=== PATIENT | male | born 1990 | race Caucasian/White ===

== ENCOUNTER 2020-09-06 15:54 | Outpatient (REF) | payer OTHER, SELFPAY | END 2020-09-06 15:55 | disposition home or self-care (01) | LOC: HO.LAB 15:54 | PROVIDERS: Visit Provider Internal Medicine | DX: Z20.828 Contact with and (suspected) exposure to other viral communicable diseases (principal) | CPT/HCPCS: 87635 ==

== ENCOUNTER 2023-06-08 13:11 | Outpatient (AMB) | payer OTHER, SELFPAY ==
--- NOTE | 2023-06-08 13:45 | MHC.OFFWIV ---
Intake Vital Signs 06/08/23 13:51 BP 120/80 Blood Pressure Location Lt brachial Position Sitting Pulse 97 Pulse Source Pulse Oximeter Pulse Oximetry (%) 94 Oxygen Delivery Method Room Air Intake Visit Reasons: [employer], Right ankle inflammation, rash from wasp bite Intake Note: Patient here because he was bit by wasp on thursday on ankle. Patient Tobacco Use Status: Never used Tobacco Allergies amoxicillin [Augmentin] Allergy (Unknown, Verified 06/08/23 14:07) rash clavulanic acid [Augmentin] Allergy (Unknown, Verified 06/08/23 14:07) rash Medication List - Last Reconciled 06/08/23 by Pk Santos MD montelukast (Singulair) 10 mg PO BEDTIME 30 days Do you need a note to return to daycare/school/sports/work: Yes HPI [employer], Right ankle inflammation, rash from wasp bite HPI Details 33-year-old male presents to the office for a sick visit. Patient was stung by a bunch of wasps a day ago. His right ankle is swollen. PFSH Social History Patient Tobacco Use Status: Never used Tobacco Physical Exam Vital Signs: Last Vital Signs Pulse 97 06/08/23 13:51 BP 120/80 06/08/23 13:51 Pulse Ox 94 06/08/23 13:51 Oxygen Delivery Method Room Air 06/08/23 13:51 Extrem Other: Right leg/ankle: Erythematous area over the wyman with tenderness. Assessment & Plan Assessment & Plan (1) Bee sting allergy: Code(s): Z91.030 - Bee allergy status Plan: Prednisone called in. Keep the foot elevated. If symptoms not better to follow-up here. Coding Level of Care Code Est Pt Level 3 (19018) Diagnoses Bee sting allergy Z91.030
[2023-06-08 13:51] VITALS: BP 120/80; PULSE 97; O2SAT 94
== END 2023-06-08 14:46 | disposition home or self-care (01) ==
PROVIDERS: Visit Provider Internal Medicine
DX: S90.561A Insect bite (nonvenomous), right ankle, initial encounter (principal); Z91.030 Bee allergy status
CPT/HCPCS: 99203

== ENCOUNTER 2023-06-13 21:41 | Observation (INO) | payer OTHER, SELFPAY ==
--- NOTE | ~2023-06-13 | US_ITS ---
EXAMINATION: US VENOUS ULTRASOUND WITH DOPPLER LOWER EXTREMITY, RIGHT CLINICAL INFORMATION: Right leg edema COMPARISON: None available. TECHNIQUE: Ultrasound of the deep veins is performed portably at the patient's bedside from the hip to the calf with compression sonography and color and pulse Doppler assessment. Spectral analysis with color-flow imaging is performed. FINDINGS: There is normal venous compression and respiratory variation and augmented flow. The visualized common femoral vein, superficial femoral vein, profunda femoral vein, popliteal vein, and the trifurcation region shows no evidence of deep venous thrombosis. There is no significant popliteal fossa cyst. Prominent 1.5 x 1.8 cm node present in the right groin If the patient's symptoms persist, followup ultrasound in 5 days 7 days might be of value to exclude proximal propagation from a non-visualized calf vein. US/US venous duplex LE RT IMPRESSION: No DVT demonstrated in the right lower extremity.
--- NOTE | ~2023-06-13 | XR_ITS ---
EXAMINATION: XR ANKLE, RIGHT CLINICAL INFORMATION: Cellulitis COMPARISON: None available. TECHNIQUE: AP, lateral, and mortise views of the right ankle. FINDINGS: There is soft tissue swelling laterally. No fracture. Alignment is anatomic. No erosions. Joint spaces are maintained. XR/XR ankle RT 2V IMPRESSION: Soft tissue swelling laterally. No evidence of osteomyelitis.
[2023-06-13 21:43] VITALS: BP 150/104; PULSE 117; RESP 18; TEMP 36.9; O2SAT 100; BMI 27.1
[2023-06-13 22:04] LABS: Basophils Absolute Auto 0.1 X10*3/uL (0.0-0.2); Basophils Percent Auto 0.5 % (0-2); Eosinophils Percent Auto 5.7 % (0-4); Hematocrit 45.6 % (42.0-52.0); Hemoglobin 15.5 g/dl (14.0-18.0); Imm Gran Abs Auto 0.16 X10*3/uL (0.00-0.03); Imm Gran Pct Auto 0.9 % (0.0-0.4); Lymphocytes Absolute Auto 3.1 X10*3/uL (1.2-4.9); MANUAL DIFF FLAG SCAN; Mean Corpuscular Hemoglobin 28.9 pg (27.0-33.0); Mean Corpuscular Volume 84.9 fL (80.0-98.0); Mean Platelet Volume 8.7 fL (9.4-12.4); Monocytes Absolute Auto 1.6 X10*3/uL (0.1-1.2); Monocytes Percent Auto 9.5 % (2-11); Neutrophils Absolute Auto 11.2 x10*3/uL (2.0-8.3); Neutrophils Percent Auto 65.4 % (45-73); Platelet Count 292 X10*3/uL (160-400); Red Blood Count 5.37 X10*6/uL (4.60-5.80); SCAN SMEAR FLAG 1; White Blood Count 17.1 X10*3/uL (4.8-10.8)
[2023-06-13 22:25] LABS: Alanine Aminotransferase 25 U/L (0-40); Alkaline Phosphatase 64 U/L (39-117); Anion Gap 19 (12-20); Aspartate Amino Transferase 20 U/L (5-37); Bilirubin Total 0.5 mg/dL (0.0-1.0); Blood Urea Nitrogen 21 mg/dL (9-16); Calcium 11.1 mg/dL (8.4-10.2); Carbon Dioxide 25 mmol/L (22-29); Chloride 101 mmol/L (96-108); Creatinine Clr Calc Pharmacy 125.9; Estimated Glomerular Filt Rate > 60; Glucose Random 92 mg/dL (60-115); Potassium 3.8 mmol/L (3.3-5.1); Sodium 141 mmol/L (135-145); Total Protein 8.5 g/dL (6.5-8.0)
[2023-06-13 22:46] LABS: SLIDE REVIEW VERIFIED
--- NOTE | 2023-06-13 23:21 | ED_ITS ---
HPI - General Adult General Chief complaint: Extremity Injury, Lower Stated complaint: R Ankle pain/Insect bite Time Seen by Provider: 06/13/23 22:56 Source: patient Mode of arrival: ambulatory Limitations: no limitations History of Present Illness HPI narrative: 33-year-old male came in for evaluation of right ankle swelling, redness, pain after was the stung by yellow jacket, patient was seen at urgent care last week was prescribed 3 days course of prednisone with no improvement. Related Data Previous Rx's Medication Instructions Recorded montelukast 10 mg tablet 10 mg PO BEDTIME 30 days #30 tabs 08/31/20 (Singulair) prednisone 20 mg tablet 60 mg PO DAILY #9 tabs 06/08/23 Allergies Allergy/AdvReac Type Severity Reaction Status Date / Time amoxicillin [Augmentin] Allergy Unknown rash Verified 06/08/23 14:07 clavulanic acid [Augmentin] Allergy Unknown rash Verified 06/08/23 14:07 Review of Systems Review of Systems: All other systems are reviewed and are negative Constitutional: Reports as per HPI and Reports no additional constitutional complaints Eyes: Reports as per HPI and Reports no additional eye complaints Reports system reviewed and no additional complaints, except as documented Cardiovascular: Reports as per HPI and Reports no additional cardiovascular complaints Respiratory: Reports as per HPI and Reports no additional respiratory complaints Gastrointestinal: Reports as per HPI and Reports no additional gastrointestinal complaints Genitourinary: Reports no additional female genitourinary complaints Musculoskeletal: Reports no additional musculoskeletal complaints Skin/Breast: Reports system reviewed and no additional complaints, except as docu Psychiatric: Reports no additional psychiatric complaints Endocrine: Reports no additional endocrine complaints Hematologic/Lymphatic: Reports no additional hematologic/lymphatic complaints Allergic/Immunologic: Reports no additional allergic/immunologic complaints Reports system reviewed and no additional complaints, except as documented and Reports Abnormal speech present [facility] Social History Social History Patient Tobacco Use Status: Never used Tobacco Advance Directives: No Advance Directives Information Provided: No Physical Exam ED Vital Signs: Vital Signs - 24 hr 06/13/23 21:43 06/14/23 00:38 Temperature 98.5 F 98.1 F Pulse Rate 117 H 97 Respiratory Rate 18 16 Blood Pressure 150/104 H 140/76 H Pulse Oximetry 100 96 Oxygen Delivery Method Room Air Room Air BMI result Body Mass Index 27.1 Vital signs have been reviewed as appeared to be correct. Blood pressure normal. Heart rate elevated. Respiration rate normal. Temperature normal. Oxygen saturation normal. Appearance: Alert. Oriented X3. No acute distress. Head: Normal external exam. Normocephalic. Atraumatic. No Rogers signs noted. No raccoon eyes noted Eyes: PERRLA. EOMI. Conjunctiva and sclera normal. Eyelids normal. ENT: TM's Normal. Pharynx normal. Uvula midline. Moist mucous membranes. No trismus noted. No drooling noted. No muffled voice noted. Neck: Normal inspection. Neck supple. FROM. No adenopathy. Thyroid Normal. No meningeal signs. No neck mass noted. CVS: Normal heart rate and rhythm. Heart sound normal. No murmurs noted. Pulses normal throughout. Respiratory: No respiratory distress. Painless inspiration. Breath sounds normal. No wheezes/rales/rhonchi noted. Chest nontender. No accessory muscle usage noted or decreased air movement noted. Abdomen: Soft and nontender. Bowel sounds normal in all 4 quadrants. No distention noted. No organomegaly noted. No visible injury noted. Back: No CVA tenderness. Full range of motion noted. Skin: Skin warm and dry. Normal skin color. Normal skin turgor. No rashes/lesions/lacerations noted. Extremities: Right ankle: Redness, hotness, swelling of the right ankle, tenderness to touch, no fluctuation no drainage, neurovascularly intact. Neuro: Oriented X 3. Cranial nerve exam: II-XII are grossly intact No motor deficit. No sensory deficit. Reflexes normal. Course Course Course Narrative: Right ankle tenderness and redness after was stung by yellow jacket or wasp, swelling did not respond to oral prednisone, patient is allergic to penicillin. Patient is receiving vancomycin/ceftriaxone in the ED. Will admit him Medications Administered Discontinued Medications Generic Name Dose Route Start Last Admin Trade Name Freq PRN Reason Stop Dose Admin Sodium Chloride 1,000 mls @ 999 mls/hr 06/13/23 23:07 06/13/23 23:52 Ns IV 06/14/23 00:07 999 mls/hr .Q1H1M ONE Administration Vancomycin HCl 1,500 mg/ 500 mls @ 333.333 mls/hr 06/13/23 23:07 06/13/23 23:54 Sodium Chloride IV 06/14/23 00:36 Not Given ONCE ONE Ceftriaxone Sodium 1 gm/ 50 mls @ 100 mls/hr 06/13/23 23:20 06/13/23 23:52 Sodium Chloride IV 06/13/23 23:49 100 mls/hr ONCE ONE Administration Medical Decision Making Differential Diagnosis Differential Diagnoses: The differential diagnosis associated with the presentation includes (Right ankle fracture, DVT, right ankle osteomyelitis, cellulitis.) Admission/Observation Consideration of admission/observation: Escalation of care including a dmission/observation considered Consult Healthcare Provider Management of the patient was discussed with: Hospitalist (Dr. Martin.) Lab Data MDM Lab Attestation statement: I reviewed the patient's lab results. 06/13/23 21:58 06/13/23 21:58 Labs: Lab Results 06/13/23 06/13/23 06/13/23 Range/Units 21:57 21:58 21:58 WBC 17.1 H (4.8-10.8) X10*3/uL RBC 5.37 (4.60-5.80) X10*6/uL Hgb 15.5 (14.0-18.0) g/dl Hct 45.6 (42.0-52.0) % MCV 84.9 (80.0-98.0) fL MCH 28.9 (27.0-33.0) pg MCHC 34.0 (31.0-36.0) g/dl RDW 13.0 (11.0-16.0) % Plt Count 292 (160-400) X10*3/uL MPV 8.7 L (9.4-12.4) fL Immature Gran % (Auto) 0.9 H (0.0-0.4) % Neut % (Auto) 65.4 (45-73) % Lymph % (Auto) 18.0 L (20-40) % [place] % (Auto) 9.5 (2-11) % Eos % (Auto) 5.7 H (0-4) % Baso % (Auto) 0.5 (0-2) % Lymph # (Auto) 3.1 (1.2-4.9) X10*3/uL [place] # (Auto) 1.6 H (0.1-1.2) X10*3/uL Eos # (Auto) 1.0 H (0.0-0.4) X10*3/uL Baso # (Auto) 0.1 (0.0-0.2) X10*3/uL Abs Immat Gran (auto) 0.16 H (0.00-0.03) X10*3/uL Absolute Neuts (auto) 11.2 H (2.0-8.3) x10*3/uL Absolute Nucleated RBC 0.000 (0.0-0.012) X10*3/uL Nucleated RBC % (auto) 0.0 (0.0-0.2) /100WBC Smear Tech's Comments VERIFIED Sodium 141 (135-145) mmol/L Potassium 3.8 (3.3-5.1) mmol/L Chloride 101 (96-108) mmol/L Carbon Dioxide 25 (22-29) mmol/L Anion Gap 19 (12-20) BUN 21 H (9-16) mg/dL Creatinine 0.96 (0.5-1.4) mg/dL Estim Creat Clear Calc 125.9 Estimated GFR > 60 Random Glucose 92 (60-115) mg/dL Lactic Acid 2.0 (0.5-2.0) mmol/L Calcium 11.1 H (8.4-10.2) mg/dL Total Bilirubin 0.5 (0.0-1.0) mg/dL AST 20 (5-37) U/L ALT 25 (0-40) U/L Alkaline Phosphatase 64 (39-117) U/L Total Protein 8.5 H (6.5-8.0) g/dL Albumin 5.0 (3.5-5.0) g/dL Independent Interpretation I performed an independent interpretation of an: Plain X-Ray (Right ankle: No acute fracture, soft tissue swelling , no osteomyelitis.) Radiology Impression Discussion of test interpretation with radiology: I have reviewed the radiologist's reading. Discharge Plan Discharge Clinical Impression: Cellulitis of right ankle Patient Disposition: Admitted As Inpatient
[2023-06-13] MEDS: cefTRIAXone sodium 1 GM in 0.9 % Sodium Chloride 50 ML IV (23:52)
[2023-06-13] MEDS: 0.9 % Sodium Chloride 1,000 ML 999 ML IV (23:52)
[2023-06-14 00:38] VITALS: BP 140/76; PULSE 97; RESP 16; TEMP 36.7; O2SAT 96
[2023-06-14] MEDS: vancomycin/NS 2,000 MG/500 ML PLAST..BAG 250 MG IV (00:43)
--- NOTE | 2023-06-14 01:17 | P.HPHOSP_ITS ---
History of Present Illness Date of Service: 06/14/23 Chief Complaint: Foot swelling 33-year-old male with no significant past medical history presents to the hospital after being stung by a wasp about a week ago. Patient has now developed significant swelling, redness, as well as tenderness in his right foot. Patient reports that this stent was in the right lateral ankle, started gradually swelling, very tender, had difficulty walking on his foot, went to Urgent Care, was prescribed prednisone, for several days which he completed, but he remains with swelling and severe tenderness. Patient denies any fever but has chills, no nausea or vomiting, no abdominal pain or diarrhea, no urinary symptoms and no lower extremity edema otherwise. On arrival to the ED patient noted to be tachycardic, labs are significant for leukocytosis of 17 otherwise unremarkable. Ankle x-ray shows tissue swelling but no other abnormality. Patient will be admitted for further management PMFSH Medical History No pertinent past medical history Surgical History No pertinent past surgical history Social History Patient Tobacco Use Status: Never used Tobacco Advance Directives: No Advance Directives Information Provided: No Meds Allergies Allergy/AdvReac Type Severity Reaction Status Date / Time amoxicillin [Augmentin] Allergy Unknown rash Verified 06/08/23 14:07 clavulanic acid [Augmentin] Allergy Unknown rash Verified 06/08/23 14:07 Active Medications: Current Medications Vancomycin HCl (Vancomycin/Ns) 2,000 mg in 500 mls @ 250 mls/hr IV ONCE ONE Stop: 06/14/23 01:44 Last Admin: 06/14/23 00:43 Dose: 250 mls/hr Pharmacy Consult (Consult Rx Vancomycin Dosing) 1 each MISCELLANE DAILY PRN PRN Reason: Consult order Physical Exam Vital Signs and Narrative: Vital Signs: Last Vital Signs Temp 98.1 F 06/14/23 00:38 Pulse 97 06/14/23 00:38 Resp 16 06/14/23 00:38 BP 140/76 H 06/14/23 00:38 Pulse Ox 96 06/14/23 00:38 O2 Del Method Room Air 06/14/23 00:38 BMI result Body Mass Index 27.1 Const: General: cooperative and no acute distress Orientation/consciousness: patient oriented x3 Eyes: General: appearance normal, both eyes and all related structures Resp: Effort & Inspection: normal respiratory effort Auscultation: clear to auscultation bilaterally Cardio: Rate: regular rate Rhythm: regular rhythm GI: Palpation (GI): Soft to palpation Auscultation: normal bowel sounds Skin: Other: Left lower extremity around the ankle mild erythema, warmth, tenderness as well as significant edema Neuro: General: patient oriented x3 Cognition (Neuro): normal cognition Extrem: Other: See skin exam Results Labs 06/13/23 21:58 06/13/23 21:58 Labs: Laboratory Results - last 24 hr 06/13/23 06/13/23 06/13/23 21:57 21:58 21:58 MCV 84.9 MCH 28.9 MCHC 34.0 RDW 13.0 Plt Count 292 MPV 8.7 L Immature Gran % (Auto) 0.9 H Neut % (Auto) 65.4 Lymph % (Auto) 18.0 L [place] % (Auto) 9.5 Eos % (Auto) 5.7 H Baso % (Auto) 0.5 Lymph # (Auto) 3.1 [place] # (Auto) 1.6 H Eos # (Auto) 1.0 H Baso # (Auto) 0.1 Abs Immat Gran (auto) 0.16 H Absolute Neuts (auto) 11.2 H Absolute Nucleated RBC 0.000 Nucleated RBC % (auto) 0.0 Smear Tech's Comments VERIFIED Anion Gap 19 Estim Creat Clear Calc 125.9 Estimated GFR > 60 Random Glucose 92 Lactic Acid 2.0 Calcium 11.1 H Total Bilirubin 0.5 AST 20 ALT 25 Alkaline Phosphatase 64 Total Protein 8.5 H Albumin 5.0 Imaging Radiologist's Impressions: Impressions Ankle X-Ray 06/13/23 23:22 IMPRESSION: Soft tissue swelling laterally. No evidence of osteomyelitis. Venous Duplex 06/13/23 23:54 IMPRESSION: No DVT demonstrated in the right lower extremity. Assessment and Plan (1) Cellulitis of right ankle: Status: Acute Plan 33-year-old male past medical history of asthma not in exacerbation presents the hospital with complaints of right ankle swelling for 1 week after a bee sting # cellulitis of right ankle - acute, has leukocytosis, tachycardic meeting SIRS criteria - otherwise hemodynamically stable - will treat with IV antibiotics - follow cultures # asthma - not in exacerbation - continue home inhalers DVT prophylaxis: Early ambulation Time Spent With Patient Time: Total time managing care of this patient today ____ minutes. Quality Stroke Does the patient have a stroke diagnosis?: No VTE Prior VTE?: No VTE Risk Level:: Medical - low VTE Device Contraindication: Treatment Not Indicated VTE Drug Contraindication: Treatment Not Indicated
[2023-06-14 02:08] VITALS: BP 119/80; PULSE 102; RESP 18; TEMP 36.7; O2SAT 95
[2023-06-14] MEDS: ceFAZolin Sodium/Dextrose,Iso 2 GM/50 ML PIGGYBACK IV ×3 (03:03→18:16)
[2023-06-14 06:53] VITALS: BP 126/80; PULSE 87; RESP 18; TEMP 36.6; O2SAT 98
[2023-06-14 06:56] LABS: MANUAL DIFF FLAG NO
[2023-06-14 07:09] LABS: Basophils Absolute Auto 0.1 X10*3/uL (0.0-0.2); Basophils Percent Auto 0.7 % (0-2); Eosinophils Percent Auto 8.3 % (0-4); Hemoglobin 13.5 g/dl (14.0-18.0); Imm Gran Abs Auto 0.16 X10*3/uL (0.00-0.03); Imm Gran Pct Auto 1.4 % (0.0-0.4); Lymphocytes Absolute Auto 3.6 X10*3/uL (1.2-4.9); Lymphocytes Percent Auto 30.9 % (20-40); Mean Corpuscular HGB Conc 33.8 g/dl (31.0-36.0); Mean Corpuscular Hemoglobin 29.3 pg (27.0-33.0); Mean Corpuscular Volume 86.8 fL (80.0-98.0); Monocytes Absolute Auto 1.2 X10*3/uL (0.1-1.2); Monocytes Percent Auto 10.3 % (2-11); Neutrophils Absolute Auto 5.6 x10*3/uL (2.0-8.3); Neutrophils Percent Auto 48.4 % (45-73); Platelet Count 256 X10*3/uL (160-400); Red Blood Count 4.61 X10*6/uL (4.60-5.80); Red Cell Distribution Width 13.3 % (11.0-16.0); White Blood Count 11.5 X10*3/uL (4.8-10.8)
[2023-06-14 07:23] LABS: Anion Gap 12 (12-20); Blood Urea Nitrogen 16 mg/dL (9-16); Carbon Dioxide 25 mmol/L (22-29); Chloride 106 mmol/L (96-108); Creatinine Clr Calc Pharmacy 163.4; Estimated Glomerular Filt Rate > 60; Glucose Random 98 mg/dL (60-115); Potassium 3.8 mmol/L (3.3-5.1); Sodium 139 mmol/L (135-145)
[2023-06-14] MEDS: 0.9 % Sodium Chloride Flush 3 ML SYRINGE IVFLUSH ×3 (07:29→19:32)
--- NOTE | 2023-06-14 07:35 | PC.NURSE ---
pt a&ox. respirations even and unlabored. pt reports no pain. right lower leg reddened with slight swelling, circulation in tact.
--- NOTE | 2023-06-14 08:14 | PC.NURSE ---
report given to [facility] nurse.
--- NOTE | 2023-06-14 08:21 | PHA.PROG ---
Admission Date/Time: June 14, 2023 01:10 Indication: skin Weight in k.3 kg Adjusted body weight in Kg: [place] body weight in Kg: Obesity Dosing Indication % IBW: Serum Creatinine - Last 168 Hours 06/13/23 06/14/23 21:58 06:31 Creatinine 0.96 0.74 Estimated CrCl and GFR - Last 168 Hours 06/13/23 06/14/23 21:58 06:31 Estim Creat Clear Calc 125.9 163.4 Estimated GFR > 60 > 60 Vancomycin Loading Dose:2000 Current Vancomycin Dosing Regimen: 1500 q12h Vancomycin Monitoring using AUC goal of 400 - 600 range with trough as surrogate marker: auc 553, trough 16.6 Date and Time for next Vancomycin Level to be drawn: 06/15 @1100 Pharmacist Comments on Vancomycin Plan: Vancomycin dosing will take advantage of [employer] as a clinical decision support tool that uses Bayesian modeling to calculate individual patient's pharmacokinetic parameters and forecast the patient's drug concentration time course with the target goal AUC 24 range of 400 - 600 mg/L/hr.
[2023-06-14 09:05] VITALS: BMI 27.0
--- NOTE | 2023-06-14 09:08 | PM.EVENT ---
Event Note Date of Service: 06/14/23 Event Note: This patient is seen and examined earlier this morning with hospitalist team. patient has foot swelling/erythema similar No fever, tachycardia and leukocytosis improved Physical exam: Similar-foot swelling/erythema similar . and assessment and plan coordinated in APCs note, Agree with the plan in addition: continue iv antibiotics ,Id eval. Time Spent With Patient Time: Total time managing care of this patient today ____ minutes.
--- NOTE | 2023-06-14 09:13 | PHA.MEDREC ---
Pharmacy Consult ? Medication Reconciliation Pharmacy has completed the medication reconciliation. SPOKE WITH PT
[2023-06-14 09:34] LABS: C Reactive Protein 1.31 mg/dL (< or = 0.50)
[2023-06-14 09:57] LABS: Erythrocyte Sedimentation Rate 12 MM/HR (0-15)
[2023-06-14] MEDS: Acetaminophen 325 MG TABLET 650 MG PO (11:01)
[2023-06-14] MEDS: vancomycin HCL 1,500 MG in 0.9 % Sodium Chloride 500 ML 333.33 MG IV (12:36)
[2023-06-14 15:36] VITALS: BP 132/82; PULSE 75; RESP 16; TEMP 36.6; O2SAT 98
[2023-06-14] MEDS: guaiFENesin DM 100/10/5 ML 5 ML SYRUP PO (19:37)
[2023-06-14 19:55] VITALS: BP 140/69; PULSE 65; RESP 20; TEMP 35.8; O2SAT 98
[2023-06-15] MEDS: vancomycin HCL 1,500 MG in 0.9 % Sodium Chloride 500 ML 333.33 MG IV (01:00)
[2023-06-15] MEDS: ceFAZolin Sodium/Dextrose,Iso 2 GM/50 ML PIGGYBACK IV ×2 (03:01→11:18)
[2023-06-15 04:00] VITALS: BP 145/76; PULSE 72; RESP 18; TEMP 36.7; O2SAT 95
[2023-06-15 07:31] VITALS: BP 127/77; PULSE 77; RESP 20; TEMP 36.5; O2SAT 97
[2023-06-15 07:32] LABS: Creatinine Clr Calc Pharmacy 172.7; Estimated Glomerular Filt Rate > 60
[2023-06-15] MEDS: 0.9 % Sodium Chloride Flush 3 ML SYRINGE IVFLUSH (07:36)
--- NOTE | 2023-06-15 10:57 | HO.PM.IMPN ---
Subjective Subjective Date of Service: 06/15/23 Interval History: cellulitis Review of Systems foot pain/swlelin Physical Exam Vital Signs: Vital Signs: Last Vital Signs Temp 97.7 F 06/15/23 07:31 Pulse 77 06/15/23 07:31 Resp 20 06/15/23 07:31 BP 127/77 06/15/23 07:31 Pulse Ox 97 06/15/23 07:31 O2 Del Method Room Air 06/15/23 07:31 BMI result Body Mass Index 27.0 Objective Data Active Medications Acetaminophen (Acetaminophen 325 Mg Tablet) 650 mg PO Q6H PRN PRN Reason: Pain, Mild (Pain Scale 1-3) Last Admin: 06/14/23 11:01 Dose: 650 mg Documented By: ENEDELIA Guaifenesin/Dextromethorphan (Guaifenesin Dm 100/10/5 Ml 5 Ml Syrup) 5 ml PO Q4H PRN PRN Reason: cough Last Admin: 06/14/23 19:37 Dose: 5 ml Documented By: DAVID Cefazolin Sodium/Dextrose (Ancef) 2 gm in 50 mls @ 100 mls/hr IV Q8H [facility] Last Infusion: 06/15/23 03:36 Dose: 0 mls/hr Documented By: DAVID Vancomycin HCl 1,500 mg/ (Sodium Chloride) 500 mls @ 333.333 mls/hr IV Q12H [facility] Last Infusion: 06/15/23 02:38 Dose: 0 mls/hr Documented By: DAVID Ondansetron HCl (Ondansetron Hcl 4 Mg/2 Ml Vial) 4 mg IVPUSH Q8H PRN PRN Reason: Nausea and Vomiting Oxycodone HCl (Oxycodone Hcl Immed Release 5 Mg Tablet) 5 mg PO Q6H PRN PRN Reason: Pain, Severe (Pain Scale 7-10) Pharmacy Consult (Consult Rx Vancomycin Dosing) 1 each MISCELLANE DAILY PRN PRN Reason: Consult order Pharmacy Consult (Consult Rx Perform Med Rec) 1 each MISCELLANE ONCE PRN PRN Reason: Consult order Sodium Chloride (0.9 % Sodium Chloride Flush 3 Ml Syringe) 3 ml IVFLUSH QSHIFT [facility] Last Admin: 06/15/23 07:36 Dose: 3 ml Documented By: ARTURO Labs 06/14/23 06:31 06/15/23 05:57 Labs: Laboratory Results - last 24 hr 06/15/23 05:57 Estim Creat Clear Calc 172.7 Estimated GFR > 60 Microbiology Microbiology Results: Microbiology 06/14/23 03:50 Blood Culture - Preliminary Blood - Venous No growth after 24 hours. 06/13/23 21:58 Blood Culture - Preliminary Blood - Venous No growth after 24 hours. Blood Culture - Preliminary No growth after 24 hours. Assessment and Plan Time Spent With Patient Time: Total time managing care of this patient today ____ minutes. Quality Stroke Does the patient have a stroke diagnosis?: No VTE Prior VTE?: No VTE Risk Level:: Medical - low VTE Device Contraindication: Treatment Not Indicated VTE Drug Contraindication: Treatment Not Indicated
--- NOTE | 2023-06-15 11:50 | MHC.CM.PN ---
[facility] DELIVERED PT LIVES IN AN APT. [place]DEPEND[place] AT [place]EL[place]. EMPLOYED F/T. NO COVID VAX NO HCP (DECLINES) NO PCP, [facility] [place] [facility] PROVIDED. DP: HOME, NO SERVICES ANTICIPATED. MAY NEED A RIDE HOME VIA SHUTTLE OR LYFT. CM WILL CONTINUE TO FOLLOW FOR DC PLAN/NEEDS
[2023-06-15 12:18] LABS: Vancomycin Random 8.1 mcg/mL (15-20)
--- NOTE | 2023-06-15 12:30 | HE.PHANOTE ---
RE: VANCO Patients level came back this morning at 8.1. Next level tomorrow 06/16 @1100. Predicted AUC 450 ml/L/hr. Continue current dose.
--- NOTE | 2023-06-15 13:04 | P.DS_ITS ---
DS: Providers Provider Date of Service: 06/15/23 Date of admission: 06/14/23 01:10 Date of discharge: 06/15/23 Primary care physician: None Physician Consults: 06/14/23 09:14 Consult to Infectious Diseases Routine Consulting Provider: [facility] [place] Infectious Disease Reason for consultation: cellulitis Has provider been notified: No Attending physician on discharge: Reyes Chavez Discharging clinician: Reyes Chavez DS: Diagnosis Discharge Diagnosis (1) Cellulitis of right ankle: Status: Acute DS: Summary Hospital Course Hospital Course: 33-year-old male with no significant past medical history presents to the hospital after being stung by a wasp about a week ago.? Patient has now developed significant swelling, redness, as well as tenderness in his right foot.? Patient reports that this stent was in the right lateral ankle, started gradually swelling, very tender, had difficulty walking on his foot, went to Urgent Care, was prescribed prednisone, for several days which he completed, but he remains with swelling and severe tenderness.? Patient denies any fever but has chills, no nausea or vomiting, no abdominal pain or diarrhea, no urinary symptoms and no lower extremity edema otherwise.? On arrival to the ED patient noted to be tachycardic, labs are significant for leukocytosis of 17 otherwise unremarkable.? Ankle x-ray shows tissue swelling but no other abnormality. Patient will be admitted for further management. Hospital course: Patient was admitted for right ankle cellulitis-started on IV antibiotics, blood cultures sent, found to have leukocytosis, dvt studies right lower ext negative ,xary-shows There is soft tissue swelling laterallycrp is 1.3(mild elevated) ,esr 12(normal) : With IV antibiotics patient cellulitis seems to be improved significantly, leukocytosis improving, blood culture negative at 24 hours- patient seems to be improved significantly going home with p.o. antibiotics. plan: Patient will go home 7 days of doxycycline. Please complete the course. Above management discussed the patient in detail length he understand and in agreement with the above plan. Time Spent with Patient Time attestation: Total time managing care of this patient today ____ minutes. Discharge coordination time: Greater than 30 minutes Quality: Safe Use of Opioids Does Pt have an Active Cancer Diagnosis on the Problem List?: No Quality: Stroke Does the patient have a stroke diagnosis?: No Physical Exam Vital Signs: Vital Signs: Last Vital Signs Temp 97.7 F 06/15/23 07:31 Pulse 77 06/15/23 07:31 Resp 20 06/15/23 07:31 BP 127/77 06/15/23 07:31 Pulse Ox 97 06/15/23 07:31 O2 Del Method Room Air 06/15/23 07:31 BMI result Body Mass Index 27.0 Appearance: Alert.? Oriented X3.? not in distress.? cvs: rrr, [id number] . res: clear to auscultation ,no rhonchii or wheezing abd: no rebound or guarding ,nt, bs present. ext pulses present , no cyanosis. right ankle -swelling/erythema -improved significantly .ROM-intact. neuro: axo3 , nonfocal. DS: Data Data Completed and Pending Labs on day of discharge: Laboratory Results - last 24 hr 06/15/23 06/15/23 05:57 11:48 Creatinine 0.70 Estim Creat Clear Calc 172.7 Estimated GFR > 60 Random Vancomycin 8.1 L Preliminary micro results at discharge 06/14/23 03:50 Blood Culture - Preliminary Blood - Venous No growth after 24 hours. 06/13/23 21:58 Blood Culture - Preliminary Blood - Venous No growth after 24 hours. Blood Culture - Preliminary No growth after 24 hours. Imaging Chest x-ray: Radiologist's impression: ITS Impressions Ankle X-Ray 06/13/23 23:22 IMPRESSION: Soft tissue swelling laterally. No evidence of osteomyelitis. Venous Duplex 06/13/23 23:54 IMPRESSION: No DVT demonstrated in the right lower extremity. Discharge Plan Discharge Anticipated Discharge Date/Time: 06/15/23 12:55 Patient Disposition: Home, Self-Care Discharge Diagnosis: Cellulitis of leg. Referrals: Physician,None [Primary Care Provider] - 1 Week Discharge Medications: New doxycycline monohydrate 100 mg Capsule 100 mg PO Q12H Qty: 14 0RF Continued cetirizine [Zyrtec] 10 mg Tablet 10 mg PO DAILY lansoprazole 15 mg Capsule,Delayed Release(Dr/Ec) 15 mg PO DAILY Discharge Orders: Discharge Order (Routine); Ordered 06/15/23 Ordered By: Reyes Chavez Diet: Advance to usual diet Activity on Discharge: As tolerated Stand Alone Forms: Patient Portal Discharge page Care Plan Goals: Patient was admitted for right ankle cellulitis-started on IV antibiotics, blood cultures sent, found to have leukocytosis also: With IV antibiotics patient cellulitis seems to be improved significantly, leukocytosis improving, blood culture negative at 24 hours- patient seems to be improved significantly going home with p.o. antibiotics. Patient will go home 7 days of doxycycline. Please complete the course. Above management discussed the patient in detail length he understand and in agreement with the above plan. Health Concerns: As above. Plan of Treatment: As above. Assessment: As above.
[2023-06-15] MEDS: Doxycycline Monohydrate 100 MG CAPSULE PO (13:33)
--- NOTE | 2023-06-15 13:43 | MHC.CM.PN ---
dp: PT HAS BEEN MEDICALLY CLEARED FOR DC HOME, NO SERVICES. RN AWARE. DMITRIY GUERRA BOOKED FOR 2:10 PM
== END 2023-06-15 13:43 | disposition home or self-care (01) ==
LOC: HO.ED 06-14 00:41 → HO.EDOVER 06-14 02:09 → HO.S3 06-14 07:36
PROVIDERS: Admitting Provider Internal Medicine; Emergency Provider Emergency Medicine; Visit Provider Internal Medicine
DX: L03.115 Cellulitis of right lower limb (principal); M25.571 Pain in right ankle and joints of right foot; R60.0 Localized edema; Z91.030 Bee allergy status; J45.909 Unspecified asthma, uncomplicated; Z88.0 Allergy status to penicillin; Z79.899 Other long term (current) drug therapy
CPT/HCPCS: 36415; 73600; 80048; 80053; 80202; 82565; 83605; 85025; 85652; 86140; 87040; 93971; 96361; 96365; 96366; 96367; 96368; 99221; 99285; J0690; J0696; J3370; J3371

== ENCOUNTER → 2023-06-13 21:59 | Outpatient (BNV) | payer OTHER, SELFPAY | PROVIDERS: Emergency Provider Emergency Medicine; Visit Provider Internal Medicine | DX: L03.115 Cellulitis of right lower limb (principal) | CPT/HCPCS: 99236; 99239; 99499 ==

== ENCOUNTER 2024-07-11 11:28 | Emergency (ER) | payer OTHER, SELFPAY ==
--- NOTE | ~2024-07-11 | US_ITS ---
EXAMINATION: US VENOUS ULTRASOUND WITH DOPPLER LOWER EXTREMITY, RIGHT CLINICAL INFORMATION: Swelling, family history of blood clots. COMPARISON: None available. TECHNIQUE: Ultrasound of the deep veins is performed from the hip to the calf with compression sonography and color and pulse Doppler assessment. Spectral analysis with color-flow imaging is performed. FINDINGS: There is normal venous compression and respiratory variation and augmented flow. The visualized common femoral vein, superficial femoral vein, profunda femoral vein, popliteal vein, and the trifurcation region shows no evidence of deep venous thrombosis. There is no significant popliteal fossa cyst. Lump in the mid/distal calf area of concern corresponds to a patent varicosities off the great saphenous vein with reflux time of 1808 ms. US/US venous duplex LE RT IMPRESSION: No DVT demonstrated in the right lower extremity. Patent varicose vein off of the great saphenous vein in the calf corresponds to the area of concern.
[2024-07-11 11:43] VITALS: BP 142/103; PULSE 91; RESP 18; TEMP 36.9; O2SAT 98; BMI 24.7
--- NOTE | 2024-07-11 11:44 | ED_ITS ---
HPI - General Adult General Chief complaint: Extremity Problem Stated complaint: lump on r leg Time Seen by Provider: 07/11/24 12:20 Source: patient Mode of arrival: ambulatory Limitations: no limitations History of Present Illness ED Provider: Dwight Barrera PA-C HPI narrative: 34-year-old male with history of asthma presents to the ER for evaluation of a ?bump in his right calf that he noticed yesterday. Reports it is painless. He states he is worried about decreased blood flow, vascular issues as well as heart failure given his family history of such. He denies any redness or warmth to the area. No chest pain or shortness of breath. No history of blood clots. No recent travel. He has a chronic wound for the last year just distal to the area that has been evaluated by a senior it auditor and he has been using mupirocin on it. Reports associated cellulitis in the past from this but no recent erythema or concern for infection. complaint: Bump to the right medial calf Onset (ago): day(s) (1) Location: right and lower extremity Radiation: non-radiation Relieving factors: none Exacerbating factors: none Associated symptoms: denies other symptoms Treatments prior to arrival: none Related Data Home Medications ?Medication ?Instructions ?Recorded ?Confirmed cetirizine 10 mg tablet (Zyrtec) 10 mg PO DAILY 06/14/23 06/14/23 lansoprazole 15 mg capsule,delayed 15 mg PO DAILY 06/14/23 06/14/23 release Previous Rx's ?Medication ?Instructions ?Recorded doxycycline monohydrate 100 mg 100 mg PO Q12H #14 caps 06/15/23 capsule Allergies Allergy/AdvReac Type Severity Reaction Status Date / Time amoxicillin [Augmentin] Allergy Unknown rash Verified 07/11/24 11:47 clavulanic acid [Augmentin] Allergy Unknown rash Verified 07/11/24 11:47 prednisone Allergy Chest Pain Verified 07/11/24 11:47 Review of Systems 2 Review of Systems: Yes all other systems are reviewed and are negative PMFSH Past Medical History Medical History No pertinent past medical history Surgical History No pertinent past surgical history Social History Social History Household Members: Family Housing: Apartment Do you presently have visiting nurse or other home services: No Patient Tobacco Use Status: Never used Tobacco Advance Directives: No Advance Directives Information Provided: No Do you have a plan to hurt others: No Plan service: No Physical Exam ED Vital Signs: Vital Signs - 24 hr 07/11/24 11:43 07/11/24 14:56 Temperature 98.5 F 98.6 F Pulse Rate 91 59 Respiratory Rate 18 18 Blood Pressure 142/103 H 146/76 H Pulse Oximetry 98 98 Oxygen Delivery Method Room Air Room Air BMI result Body Mass Index 24.7 Appearance: Alert. Oriented X3. No acute distress. HEENT: normal inspection CVS: Normal heart rate and rhythm. Pulses normal. Respiratory: No respiratory distress. Skin: Skin warm and dry. Normal skin color. Normal skin turgor. No rashes. Extremities: RLE with a 1cm round scabbing lesion on the distal lower leg. medial calf in the middle of the lower leg with a minimally swollen area that is nontender. no skin changes. no calf tenderness. Neuro: Oriented X 3. grossly normal, nonfocal. Course Course Course Narrative: RME performed by Kavitha Lee PA-C. Patient is a 34 year old assigned male at presenting to the emergency department with a lump on his right lower leg. Patient states that they have a family history of CHF and poor circulation. Detailed physical exam and review of systems are deferred to the telegraph office manager. Labs and imaging ordered. Patient placed back in the waiting room pending room availability and results. Medical Decision Making Medical Decision Making MDM Narrative: 34-year-old male presents to the ER for evaluation of a right lower extremity area of swelling that was noted yesterday. No trauma. No overlying skin changes. No calf pain, chest pain or shortness of breath. He is worried about peripheral vascular disease and CHF. On examination there is a minimally swollen area at the distal gastroc muscle that is not tender. No induration. Homans sign is negative. Low clinical suspicion for DVT. His leg is warm and well perfused. He has a chronic wound of his right lower leg for which he sees Dermatology and has been using mupirocin. No evidence of cellulitis. Ultrasound was done that is showing a varicose vein in the area of concern. This is most likely with the patient feels as a lump. It is nonpainful. No need for vascular referral at this time. Results of labs and imaging were discussed with the patient. Recommended compression stockings and elevating his legs. Stable for discharge home. Differential Diagnosis Differential Diagnoses: The differential diagnosis associated with the presentation includes DVT, PVD, cellulitis, abscess, partial muscle tear, muscle strain Lab Data MDM Lab Attestation statement: I reviewed the patient's lab results. No leukocytosis, negative BNP 07/11/24 12:28 07/11/24 12:28 Labs: Lab Results 07/11/24 07/11/24 Range/Units 12:28 12:29 WBC 7.2 (4.8-10.8) X10*3/uL RBC 5.23 (4.60-5.80) X10*6/uL Hgb 15.2 (14.0-18.0) g/dl Hct 45.2 (42.0-52.0) % MCV 86.4 (80.0-98.0) fL MCH 29.1 (27.0-33.0) pg MCHC 33.6 (31.0-36.0) g/dl RDW 12.8 (11.0-16.0) % Plt Count 239 (160-400) X10*3/uL MPV 9.4 (9.4-12.4) fL Immature Gran % (Auto) 0.4 (0.0-0.4) % Neut % (Auto) 56.7 (45-73) % Lymph % (Auto) 32.0 (20-40) % Angelina % (Auto) 7.6 (2-11) % Eos % (Auto) 2.6 (0-4) % Baso % (Auto) 0.7 (0-2) % Lymph # (Auto) 2.3 (1.2-4.9) X10*3/uL Angelina # (Auto) 0.6 (0.1-1.2) X10*3/uL Eos # (Auto) 0.2 (0.0-0.4) X10*3/uL Baso # (Auto) 0.1 (0.0-0.2) X10*3/uL Abs Immat Gran (auto) 0.03 (0.00-0.03) X10*3/uL Absolute Neuts (auto) 4.1 (2.0-8.3) x10*3/uL Absolute Nucleated RBC 0.000 (0.0-0.012) X10*3/uL Nucleated RBC % (auto) 0.0 (0.0-0.2) /100WBC ESR 4 (0-15) MM/HR PT 11.5 (11.1-13.3) SEC INR 0.9 (0.9-1.1) APTT 31.0 (26.0-36.8) SEC Sodium 140 (135-145) mmol/L Potassium 3.9 (3.3-5.1) mmol/L Chloride 107 (96-108) mmol/L Carbon Dioxide 25 (22-29) mmol/L Anion Gap 12 (12-20) BUN 13 (9-16) mg/dL Creatinine 0.75 (0.5-1.4) mg/dL Estim Creat Clear Calc 159.8 Estimated GFR > 60 Random Glucose 99 (60-115) mg/dL Calcium 9.8 (8.4-10.2) mg/dL Magnesium 2.1 (1.6-2.6) mg/dL Total Bilirubin 0.5 (0.0-1.0) mg/dL AST 15 (5-37) U/L ALT 17 (0-40) U/L Alkaline Phosphatase 57 (39-117) U/L C-Reactive Protein < 0.10 (< or = 0.50) mg/dL B-Natriuretic Peptide < 10 (<100) pg/mL Total Protein 7.3 (6.5-8.0) g/dL Albumin 4.4 (3.5-5.0) g/dL Independent Interpretation I performed an independent interpretation of an: Ultrasound Interpretation: No evidence of acute DVT, agrees radiology read Radiology Impression Discussion of test interpretation with radiology: I have reviewed the radiologist's reading. Radiologist Impression: EXAMINATION: US VENOUS ULTRASOUND WITH DOPPLER LOWER EXTREMITY, RIGHT CLINICAL INFORMATION: Swelling, family history of blood clots. COMPARISON: None available. TECHNIQUE: Ultrasound of the deep veins is performed from the hip to the calf with compression sonography and color and pulse Doppler assessment. Spectral analysis with color-flow imaging is performed. FINDINGS: There is normal venous compression and respiratory variation and augmented flow. The visualized common femoral vein, superficial femoral vein, profunda femoral vein, popliteal vein, and the trifurcation region shows no evidence of deep venous thrombosis. There is no significant popliteal fossa cyst. Lump in the mid/distal calf area of concern corresponds to a patent varicosities off the great saphenous vein with reflux time of 1808 ms. US/US venous duplex LE RT IMPRESSION: No DVT demonstrated in the right lower extremity. Patent varicose vein off of the great saphenous vein in the calf corresponds to the area of concern. External Record Review External record reviewed: Outpatient record and Prior outpatient labs Critical Care Time Critical Care Time Critical Care Time: No Discharge Plan Discharge Clinical Impression: Varicose vein of leg Qualifiers: Varicose vein complication: unspecified Laterality: right Qualified Code(s): I 83.91 - Asymptomatic varicose veins of right lower extremity Patient Disposition: Home, Self-Care Instructions: Venous Insufficiency (DC) Additional Instructions: your lab workup today was normal your ultrasound was negative for DVT but showed a varicose vein wear compression stockings and elevate your leg when possible follow up with your doctor EXAMINATION: US VENOUS ULTRASOUND WITH DOPPLER LOWER EXTREMITY, RIGHT CLINICAL INFORMATION: Swelling, family history of blood clots. COMPARISON: None available. TECHNIQUE: Ultrasound of the deep veins is performed from the hip to the calf with compression sonography and color and pulse Doppler assessment. Spectral analysis with color-flow imaging is performed. FINDINGS: There is normal venous compression and respiratory variation and augmented flow. The visualized common femoral vein, superficial femoral vein, profunda femoral vein, popliteal vein, and the trifurcation region shows no evidence of deep venous thrombosis. There is no significant popliteal fossa cyst. Lump in the mid/distal calf area of concern corresponds to a patent varicosities off the great saphenous vein with reflux time of 1808 ms. US/US venous duplex LE RT IMPRESSION: No DVT demonstrated in the right lower extremity. Patent varicose vein off of the great saphenous vein in the calf corresponds to the area of concern. Prescriptions: No Action cetirizine [Zyrtec] 10 mg Tablet 10 mg PO DAILY lansoprazole 15 mg Capsule,Delayed Release(Dr/Ec) 15 mg PO DAILY doxycycline monohydrate 100 mg Capsule 100 mg PO Q12H Qty: 14 0RF Interventions: ED Discharge Assessment Last Done: 07/11/24 15:22 Print Language: Montserratian
[2024-07-11 12:35] LABS: MANUAL DIFF FLAG NO
[2024-07-11 12:41] LABS: Basophils Absolute Auto 0.1 X10*3/uL (0.0-0.2); Basophils Percent Auto 0.7 % (0-2); Eosinophils Absolute Auto 0.2 X10*3/uL (0.0-0.4); Eosinophils Percent Auto 2.6 % (0-4); Hematocrit 45.2 % (42.0-52.0); Hemoglobin 15.2 g/dl (14.0-18.0); Imm Gran Abs Auto 0.03 X10*3/uL (0.00-0.03); Imm Gran Pct Auto 0.4 % (0.0-0.4); Lymphocytes Absolute Auto 2.3 X10*3/uL (1.2-4.9); Mean Corpuscular HGB Conc 33.6 g/dl (31.0-36.0); Mean Corpuscular Hemoglobin 29.1 pg (27.0-33.0); Mean Corpuscular Volume 86.4 fL (80.0-98.0); Mean Platelet Volume 9.4 fL (9.4-12.4); Monocytes Absolute Auto 0.6 X10*3/uL (0.1-1.2); Monocytes Percent Auto 7.6 % (2-11); Neutrophils Absolute Auto 4.1 x10*3/uL (2.0-8.3); Neutrophils Percent Auto 56.7 % (45-73); Platelet Count 239 X10*3/uL (160-400); Red Blood Count 5.23 X10*6/uL (4.60-5.80); Red Cell Distribution Width 12.8 % (11.0-16.0); White Blood Count 7.2 X10*3/uL (4.8-10.8)
[2024-07-11 12:43] LABS: INTERNATIONAL NORM RATIO 0.9 (0.9-1.1); Prothrombin Time 11.5 SEC (11.1-13.3)
[2024-07-11 12:52] LABS: Alanine Aminotransferase 17 U/L (0-40); Albumin Level 4.4 g/dL (3.5-5.0); Alkaline Phosphatase 57 U/L (39-117); Anion Gap 12 (12-20); Aspartate Amino Transferase 15 U/L (5-37); Bilirubin Total 0.5 mg/dL (0.0-1.0); Blood Urea Nitrogen 13 mg/dL (9-16); C Reactive Protein < 0.10 mg/dL (< or = 0.50); Calcium 9.8 mg/dL (8.4-10.2); Carbon Dioxide 25 mmol/L (22-29); Chloride 107 mmol/L (96-108); Creatinine Clr Calc Pharmacy 159.8; Estimated Glomerular Filt Rate > 60; Glucose Random 99 mg/dL (60-115); Magnesium 2.1 mg/dL (1.6-2.6); Potassium 3.9 mmol/L (3.3-5.1); Sodium 140 mmol/L (135-145); Total Protein 7.3 g/dL (6.5-8.0)
[2024-07-11 13:09] LABS: B Type Natriuretic Peptide < 10 pg/mL (<100)
[2024-07-11 13:17] LABS: Erythrocyte Sedimentation Rate 4 MM/HR (0-15)
[2024-07-11 14:56] VITALS: BP 146/76; PULSE 59; RESP 18; TEMP 37; O2SAT 98
[2024-07-11 15:22] VITALS: BP 146/76; PULSE 59; RESP 18; TEMP 37; O2SAT 98
== END 2024-07-11 15:23 | disposition home or self-care (01) ==
PROVIDERS: Physician Assistant Medical; Emergency Provider Emergency Medicine Emergency Medical Services
DX: I83.91 Asymptomatic varicose veins of right lower extremity (principal); M79.604 Pain in right leg; R60.0 Localized edema; R23.4 Changes in skin texture; Z79.899 Other long term (current) drug therapy
CPT/HCPCS: 36415; 80053; 83735; 83880; 85025; 85610; 85652; 85730; 86140; 93971; 99283; 99284